=== PATIENT | male | born 2000 | race Caucasian/White ===

== ENCOUNTER 2025-03-02 14:51 | Outpatient (AMB) | payer OTHER, SELFPAY ==
--- NOTE | 2025-03-02 14:56 | MHC.PC.OV ---
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 Family history of hypertension. Allergies Seasonal Allergies Allergy (Verified 03/02/25 15:02) Watery Eye Medication List - Last Reconciled 03/02/25 by Ignacio Herrera MD No Known Home Meds Tobacco use date assessed: 03/02/25 Dental Screening Dental Screen Date: 03/02/25 Did you have a dental visit in the last 12 months?: Yes Did you have a dental problem in the last 6 months where you did not have access to dental care?: No Was dental information given to patient?: Patient has dentist HPI CLOCK AND WATCH HANDS DIPPER -High BP HPI Details New Patient? ?? Prior PCP:? Yisel Last office visit/CPE:? 3-4 yrs ago Acute issue(s):? ?? PMHx:? L shoulder pain Hx of torn Labrum. Has seen [facility]. No surgery so far. SurgHx:? L Clavicle w/ Hardware 2018. FHx:? Dad: HTN, Asthma. Mom: HTN pGF: Cancer. SocHx:? Nonsmoker, EtOH Social Weekends 2-3 drTeofilo No drugs PFS Medical History (Updated 03/02/25 @ 15:36 by Josh Long) Strabismus Clavicle fracture Surgical History (Updated 03/02/25 @ 15:12 by Yanet Gudino CMA) [place] teeth removed Family History (Updated 03/02/25 @ 15:05 by Yanet Gudino CMA) Father Asthma Hypertension Mother Hypertension Paternal Grandfather Pancreatic cancer Social History (Updated 03/02/25 @ 15:04 by Yanet Gudino CMA) Housing: House Alcohol intake: current Patient Tobacco Use Status: Never used Tobacco e-Cigarette/Vaping Use: Never Used Second Hand Smoke Exposure: No Use of substances other than those prescribed or required for medical reasons: No service: No Current occupational status: employed Current occupation: [employer] Current occupational exposures/hazards: No Cognitive needs: No Hearing needs: No Vision needs: No Questionnaire PHQ-9 Over the last 2 weeks, how often have you been bothered by any of the following problems? 1. Little interest or pleasure in doing things: not at all 2. Feeling down, depressed, or hopeless: not at all 3. Trouble falling or staying asleep, or sleeping too much: not at all 4. Feeling tired or having little energy: not at all 5. Poor appetite or overeating: not at all 6. Feeling bad about yourself - or that you are a failure or have let yourself or your family down: not at all 7. Trouble concentrating on things, such as reading the newspaper or watching television: not at all 8. Moving or speaking so slowly that other people could have noticed. Or the opposite - being so fidgety or restless that you have been moving around a lot more than usual: not at all 9. Thoughts that you would be better off or of hurting yourself in some way: not at all Total score: 0 Depression Screening Interpretation: Negative Depression Screening Done: Yes 89579 - PHQ-9 Billing: Yes Source: Developed by Drs. Mansoor Garza, Sanjana Horan, Curry Andrew and colleagues, with an educational jacky from [employer]. Thrive Questionnaire Date Thrive assessed: 03/02/25 I am a: Patient What is your living situation today?: I have a steady place to live Within the past 12 months, did the food you bought not last and you didn't have the money to get more?: Never true Within the past 12 months, did you worry whether your food would run out before you got money to buy more?: Never true Do you have trouble paying for medicines?: No Do you have trouble getting transportation to medical appointments?: No Do you have trouble paying your heating and electricity bill?: No Do you have trouble taking care of your child, family member or friend?: No Do you have trouble with day-to-day activities such as bathing, preparing meals, shopping, managing finances, etc.?: No Are you currently unemployed and looking for a job?: No Are you interested in more education?: No Please select the resources that you would like help with: None Currently or been in a relationship where the following occur: No concerns reported THRIVE Score: 0 AUDIT C Alcohol Use Questionnaire (AUDIT-C) 1. How often do you have a drink containing alcohol?: 2-4 times a month 2. How many drinks containing alcohol do you have on a typical day when you are drinking?: 3 or 4 3. How often do you have six or more drinks on one occasion?: Less than monthly Total Score: 4 ANGI-7 AMB Questionnaire ANGI-7 Date ANGI - 7 assessed: 03/02/25 Feeling nervous, anxious, or on edge: 0 = Not at all Not being able to stop or control worryin = Not at all Worrying too much about different things: 0 = Not at all Trouble relaxin = Not at all Being so restless that it is hard to sit still: 0 = Not at all Becoming easily annoyed or irritable: 0 = Not at all Feeling afraid as if something awful might happen: 0 = Not at all Total ANGI-7 score (0-4 normal; 5-9 mild; 10-14 moderate; 15-21 severe): 0 Source: Developed by Drs. Mansoor Garza, Sanjana Horan, Curry Andrew and colleagues, with an educational jacky from [employer]. ANGI-7 Assessment Billing ANGI-7 Assessment Tool: ANGI-7 Assessment 46494 Review of Systems Const Denies chills, Denies fatigue, Denies fever(s), Denies headache(s) and Denies weakness Eyes Denies change in vision ENT Denies dizziness, Denies headache(s), Denies hearing loss, Denies nasal congestion, Denies sinus pain, Denies sinus pressure and Denies sore throat Card Denies chest pain, Denies lightheadedness, Denies dyspnea and Denies other (palpitations) Resp Denies cough, Denies dyspnea and Denies wheezing GI Denies abdominal pain, Denies melena, Denies hematochezia, Denies change in bowel habits, Denies dyspepsia and Denies nausea Denies hematuria and Denies dysuria Musc Denies abnormal gait, Denies myalgias, Denies arthralgias, Denies numbness and Denies tingling Skin/Breast Denies rash, Denies unusual bruising and Denies wounds Neuro Denies abnormal gait, Denies dizziness, Denies headache(s), Denies memory loss, Denies numbness, Denies Sensory deficit (Neuro), Denies tingling and Denies weakness Psych Denies anxiety, Denies depression and Denies memory loss Endo Denies cold intolerance, Denies fatigue, Denies heat intolerance, Denies polydipsia and Denies polyuria Osmar/Lymph Denies easy bleeding and Denies easy bruising Aller/Immun Denies wheezing Physical exam (Primary Care) Vital Signs: Last Vital Signs Temp 97.9 F 03/02/25 15:05 Pulse 76 03/02/25 15:05 Resp 14 03/02/25 15:05 BP 116/68 03/02/25 15:05 Pulse Ox 98 03/02/25 15:05 Oxygen Delivery Method Room Air 03/02/25 15:05 BMI result Body Mass Index 23.6 Tobacco/Smoking Status: Tobacco use Status Tobacco use date assessed 03/02/25 03/02/25 15:12 Patient Tobacco Use Status Never used Tobacco 03/02/25 15:12 e-Cigarette/Vaping Use Never Used 03/02/25 15:12 PHQ-9: PHQ-9 Score PHQ-9: Total score 0 03/02/25 14:58 Depression Screening Interpretation: Negative Thrive Assessment: Date of Thrive Assessment Date Thrive assessed 03/02/25 03/02/25 14:58 Currently or been in a relationship where the following occur: No concerns reported Const General: no acute distress, well developed, alert and awake Nutritional Appearance: well nourished Orientation/consciousness: patient oriented x3 HENMT Head: Yes normocephalic and Yes atraumatic Ears: hearing grossly normal bilaterally and TM's normal bilaterally General nose exam: Normal external nose present and Normal nares present Mouth: Normal oral and palatal mucosa present and moist mucous membranes Teeth and gingiva: dentition normal Throat: Yes posterior oropharynx normal Eyes General: appearance normal, both eyes and all related structures Pupils: Equal, round and reactive pupils present and Pupil accommodation reflex normal EOM: EOMs intact bilaterally Neck Neck: Yes normal visual inspection, Yes no lymphadenopathy and Yes trachea midline Thyroid: Thyroid normal Carotids: no bruits Lymphatic: no lymphadenopathy noted Chest Chest palpation & inspection: normal inspection of the chest Resp Effort & Inspection: normal respiratory effort Auscultation: clear to auscultation bilaterally Cardio Rate: regular rate Rhythm: regular rhythm Heart sounds: S1 normal heart sound present, S2 normal heart sound present, no gallops, no murmurs and no rubs Bruits: no abdominal aortic bruits and no carotid bruits GI Palpation (GI): No Abdominal aortic bruit present, Soft to palpation, nontender, No hepatosplenomegaly present and No Rebound tenderness present Auscultation: normal bowel sounds General: Yes no CVA tenderness Back/Spine/Pelvis Back: no CVA tenderness Cervical Spine: cervical ROM normal and No Cervical spine tenderness Thoracic/Lumbar Spine: thoraco-lumbar ROM normal, No pain with thoraco-lumbar ROM, No thoracic spinal tenderness and No lumbar spinal tenderness Skin Lesions: no lesions Rashes: no rashes Trauma: no lacerations or abrasions Wounds: no wounds Nails: normal Neuro General: patient oriented x3 Cranial nerves: Yes Equal, round and reactive pupils present Cognition (Neuro): normal cognition Gait exam (Neuro): Normal gait present Motor exam (neuro): 5/5 motor strength present throughout Sensory Exam: No Sensory deficit (Neuro) Deep tendon reflexes (DTR's): Right patellar reflex intensity grade: 2+ and Left patellar reflex intensity grade: 2+ Extrem General: Yes normal to inspection and No edema Psych Appearance: grossly normal Affect: normal affect Attitude: cooperative Thought process: Normal thought process present Coding Level of Care Code New Pt Level 3 (12520) New Pt Prev Care 18-39yr(06167 Diagnoses Adult general medical exam Z00.00 Left shoulder pain M25.512 Additional Codes ANGI-7 Assessment Billing - ANGI-7 Assessment Tool: ANGI-7 Assessment 52214 ([id number]) PHQ-9 - 52128 - PHQ-9 Billing: Yes ([id number]) Assessment & Plan Assessment & Plan (1) Adult general medical exam: Code(s): Z00.00 - Encounter for general adult medical examination without abnormal findings Category: Medical Plan: 24-year-old male presents as new patient for complete physical exam Exam all within limits Encouraged a healthy diet with active lifestyle and plenty of exercise (2) Left shoulder pain: Code(s): M25.512 - Pain in left shoulder Category: Medical Plan: History of left labrum tear Currently no pain and he has done physical therapy in the past. Stable. He can let me know if he has any new issues. Orders: Orders Lipid Panel Today Z00.00 - Encounter for general adult medical examination without abnormal findings CT NG by PCR Urine Today Z11.3 - Encounter for screening for infections with a predominantly sexual mode of transmission Hepatitis B,C Profile Today Z11.3 - Encounter for screening for infections with a predominantly sexual mode of transmission Syphilis Screen Today Z11.3 - Encounter for screening for infections with a predominantly sexual mode of transmission Comprehensive [place]. Panel Fast Today Z00.00 - Encounter for general adult medical examination without abnormal findings Microalbumin, Random (w Creat) Today I10 - Essential (primary) hypertension TSH reflex Free T4 Today Z00.00 - Encounter for general adult medical examination without abnormal findings UA CC w/rflx Micro + Cult Today Z00.00 - Encounter for general adult medical examination without abnormal findings HIV Ab/Ag Today Z11.3 - Encounter for screening for infections with a predominantly sexual mode of transmission
[2025-03-02 15:05] VITALS: BP 116/68; PULSE 76; RESP 14; TEMP 36.6; O2SAT 98; BMI 23.6
--- OUTSIDE RECORDS SUMMARY | 2025-03-02 16:11 | XMS_ITS | Clinical Summary ---
Author Organization [facility] Address [address] [place] [address] Care Team Providers Care Stock Chaser Name Role Phone Unavailable Primary Care Provider Unavailabl e Source Comments Please note that some or all of the patient's information could have additional privacy protections. State laws allow health care providers to render certain types of treatment to minors without parental consent. Please do not assume that this information can be shared solely by obtaining just the consent of the patient's parent/guardian. Please determine if all or part of the patient's care was rendered without parent/guardian involvement. And, if so, obtain the minor's consent prior to disclosure.[facility] Family History Medical History Relation Name Comments Myopia Father Relation Name Status Comments Father Social History Tobacco Use Types Packs/Day Years Used Date Smoking Tobacco: Never Assessed Sex and Gender Information Value Date Recorded Sex Assigned at Not on file Legal Sex Male 2:22 AM EST Gender Identity Not on file Sexual Orientation Not on file Plan of Treatment Health Maintenance Due Date Last Done Comments DTaP/TDAP/TD VACCINES (1 - Tdap) 2008 ADOLESCENT HIV SCREENING 2014 COVID-19 Vaccine (2023-2 5 season) 2025 INFLUENZA (#1) 2025 NIRSEVIMAB VACCINES UNDER 8 MONTHS Aged Out No longer eligible based on patient's age to complete this topic [place] [facility] Address: [facility] [id number] [facility] [place] [phone]
--- OUTSIDE RECORDS SUMMARY | 2025-03-02 16:11 | XMS_ITS | Clinical Summary ---
Author Organization [facility] Address [address] [place] [address] Phone Care Team Providers Care Epitaxial Reactor Operator Name Role Phone [facility] Primary Care Provider [facility], [facility] Unavailable [facility], [facility] Unavailable Social History Tobacco Use Types Packs/Day Years Used Date Smoking Tobacco: Never Assessed Sex and Gender Information Value Date Recorded Sex Assigned at Not on file Legal Sex Male 1:20 AM EDT Gender Identity Not on file Sexual Orientation Not on file Plan of Treatment Not on file Care Teams Epitaxial Reactor Operator Relationship Specialty Start Date End Date [facility] [address] [place] [address] PCP - General 08/22/17 [facility] [address] [place] [address] PCP - Clinical PCP 08/22/17 [facility] [address] [place] [address] PCP - Insurance PCP 08/22/17
--- OUTSIDE RECORDS SUMMARY | 2025-03-02 16:11 | XMS_ITS ---
Author Name [facility] Organization Unknown Care Team Organization Name Specialty Phone Email Start Date End Da te [facility] EMANUEL DUMONTIS Primary Care 04/10/20222023
== END 2025-03-02 15:43 | disposition home or self-care (01) ==
LOC: HO.HMCFM 14:52
PROVIDERS: PCP Family Medicine; Visit Provider Family Medicine
DX: Z00.00 Encounter for general adult medical examination without abnormal findings (principal); M25.512 Pain in left shoulder

== ENCOUNTER → 2025-03-02 14:51 | Outpatient (BNVA) | payer OTHER, SELFPAY | PROVIDERS: PCP Family Medicine; Visit Provider Family Medicine | DX: Z00.00 Encounter for general adult medical examination without abnormal findings (principal); M25.512 Pain in left shoulder | CPT/HCPCS: 96127 ==

== ENCOUNTER 2025-05-29 09:23 | Outpatient (REF) | payer OTHER, SELFPAY ==
--- OUTSIDE RECORDS SUMMARY | 2025-05-29 09:28 | XMS_ITS | Clinical Summary ---
Author Organization [facility] Address [address] [place], [place] [id number] Care Team Providers Care [employer] Principal Name Role Phone None, Pcp MD Primary Care Provider Unavailabl e Allergies No known active allergies Medications oxyCODONE-aceta minophen (PERCOCET) 5-325 mg per tablet Take 1-2 tablets by mouth every 4 hours as needed for pain. 15 tablet 05/30/2017 Active Social History Tobacco Use Types Packs/Day Years Used Date Smoking Tobacco: Never Assessed Sex and Gender Information Value Date Recorded Sex Assigned at Not on file Legal Sex Male 7:45 PM EST Gender Identity Not on file Sexual Orientation Not on file Last Filed Vital Signs Vital Sign Reading Time Taken Comments Blood Pressure 129/83 05/30/2017 7:50 PM EST Pulse 88 05/30/2017 7:50 PM EST Temperature 36.8 C (98.3 F) 05/30/2017 7:50 PM EST Respiratory Rate 16 05/30/2017 7:50 PM EST Oxygen Saturation 98% 05/30/2017 7:50 PM EST Inhaled Oxygen Concentration - - Weight - - Height 175.3 cm (5' 9 ) 05/30/2017 7:50 PM EST Body Mass Index - - Plan of Treatment Not on file Insurance [employer] Care Teams [employer] Principal Relationship Specialty Start Date End Date None, Pcp, PCP - General 05/30/17
--- OUTSIDE RECORDS SUMMARY | 2025-05-29 09:28 | XMS_ITS | Clinical Summary ---
Author Organization [facility] Address [address] [place] [address] Phone Care Team Providers Care Balance Screwhead Polisher Name Role Phone [facility] Primary Care Provider [facility], [facility] Unavailable [facility], [facility] Unavailable Social History Tobacco Use Types Packs/Day Years Used Date Smoking Tobacco: Never Assessed Sex and Gender Information Value Date Recorded Sex Assigned at Not on file Legal Sex Male 1:20 AM EDT Gender Identity Not on file Sexual Orientation Not on file Plan of Treatment Not on file Care Teams Balance Screwhead Polisher Relationship Specialty Start Date End Date [facility] [address] [place] [address] PCP - General 08/22/17 [facility] [address] [place] [address] PCP - Clinical PCP 08/22/17 [facility] [address] [place] [address] PCP - Insurance PCP 08/22/17
--- OUTSIDE RECORDS SUMMARY | 2025-05-29 09:28 | XMS_ITS | Clinical Summary ---
Author Organization [facility] '[facility] Address [address] [place] [address] Care Team Providers Care Supervisor Printing Shop Name Role Phone Unavailable Primary Care Provider [...] so, obtain the minor's consent prior to disclosure.[facility] Family History Medical History Relation Name [...]
[2025-05-29 11:17] LABS: Appearance Urine Clear; Glucose Urine UA Negative (Negative); PH 6.5 (5.0-9.0); Specific Gravity - Urine 1.010 (1.005-1.025)
[2025-05-29 11:35] LABS: Alanine Aminotransferase 17 U/L (0-40); Albumin Level 5.1 g/dL (3.5-5.0); Alkaline Phosphatase 59 U/L (39-117); Anion Gap 12 (12-20); Aspartate Amino Transferase 21 U/L (5-37); Blood Urea Nitrogen 12 mg/dL (9-16); Calcium 9.7 mg/dL (8.4-10.2); Carbon Dioxide 27 mmol/L (22-29); Chloride 105 mmol/L (96-108); Cholesterol 199 mg/dL (<200); Estimated Glomerular Filt Rate > 60; HDL Cholesterol 54 mg/dL (>40); Potassium 3.9 mmol/L (3.3-5.1); Sodium 140 mmol/L (135-145); Total Protein 7.3 g/dL (6.5-8.0); Triglycerides 102 mg/dL (<150)
[2025-05-29 11:45] LABS: Syphilis Screen Nonreactive (Nonreactive)
[2025-05-29 11:47] LABS: HBS Num1 0.00 mIU/mL (0-7.99); HBc Num1 0.28 S/CO (0.00-0.79); HBsAGNum1 0.37 S/CO (0.00-0.99); HIV Num 1 0.09 S/CO (0.00-0.99); Hepatitis B Surface Antigen Negative (Negative); ~HepC Num1 0.05 S/CO (0.00-0.79); ~Hepatitis B Surface Antibody NONREACTIVE (Nonreactive); ~Hepatitis C Antibody Nonreactive (Nonreactive)
[2025-05-29 12:53] LABS: CT PCR Urine NOT DETECTED (Not Detect.); NG PCR Urine NOT DETECTED (Not Detect.)
== END 2025-05-29 09:24 | disposition home or self-care (01) ==
LOC: HO.HMGCLDS 09:23
PROVIDERS: PCP Family Medicine; Visit Provider Family Medicine
DX: Z00.00 Encounter for general adult medical examination without abnormal findings (principal); Z20.2 Contact with and (suspected) exposure to infections with a predominantly sexual mode of transmission; Z11.59 Encounter for screening for other viral diseases; Z11.4 Encounter for screening for human immunodeficiency virus [HIV]; I10 Essential (primary) hypertension
CPT/HCPCS: 80053; 80061; 81003; 82570; 84443; 86704; 86706; 86780; 86803; 87340; 87389; 87491; 87591

== ENCOUNTER → 2025-06-01 16:04 | Outpatient (AMB) | payer OTHER, SELFPAY ==
--- NOTE | 2025-06-01 16:01 | A.OFFPC_ITS ---
Intake Visit Reasons: f/u labs via telemedicine Intake Note: Marcial presents for a telehealth follow up to his lab results. Flap Maker Required: No Allergies Seasonal Allergies Allergy (Verified 06/01/25 16:02) Watery Eye Tobacco use date assessed: 06/01/25 Dental Screening Dental Screen Date: 06/01/25 Did you have a dental visit in the last 12 months?: Yes Did you have a dental problem in the last 6 months where you did not have access to dental care?: No Was dental information given to patient?: Patient has dentist HPI f/u labs via telemedicine HPI Details 25 y/o male presents to f/u labs. Recent labs show elevated lipids. [facility] Medical History (Updated 06/01/25 @ 16:31 by Josh Long) Strabismus Clavicle fracture Surgical History (Updated 03/02/25 @ 15:12 by Yanet Gudino CMA) [place] teeth removed Family History Father Asthma Hypertension Mother Hypertension Paternal Grandfather Pancreatic cancer Social History (Updated 06/01/25 @ 16:02 by Yanet Gudino CMA) Housing: House Alcohol intake: current Patient Tobacco Use Status: Never used Tobacco e-Cigarette/Vaping Use: Never Used Second Hand Smoke Exposure: No service: No Current occupational status: employed Current occupation: [employer] Current occupational exposures/hazards: No Cognitive needs: No Hearing needs: No Vision needs: No Questionnaire Thrive Questionnaire Date Thrive assessed: 03/02/25 ANGI-7 AMB Questionnaire ANGI-7 Date ANGI - 7 assessed: 03/02/25 Source: Developed by Drs. Mansoor Garza, Sanjana Horan, Curry Andrew and colleagues, with an educational jacky from [employer]. Review of Systems Const Denies chills, Denies fatigue, Denies fever(s), Denies headache(s) and Denies weakness ENT Denies dizziness and Denies headache(s) Card Denies dyspnea Resp Denies cough, Denies dyspnea, Denies wheezing and Denies other (shortness of breath) Musc Denies numbness and Denies tingling Neuro Denies dizziness, Denies headache(s), Denies numbness, Denies tingling and Denies weakness Psych Denies anxiety and Denies depression Endo Denies fatigue Aller/Immun Denies wheezing Physical exam (Primary Care) Tobacco/Smoking Status: Tobacco use Status Tobacco use date assessed 06/01/25 06/01/25 16:03 Patient Tobacco Use Status Never used Tobacco 06/01/25 16:03 e-Cigarette/Vaping Use Never Used 06/01/25 16:03 Thrive Assessment: Date of Thrive Assessment Date Thrive assessed 03/02/25 06/01/25 16:03 Telehealth Telehealth Telehealth Platform: Telephone Location of provider rendering services: practice address Location of patient: address on file Patient Identification confirmed using: Name, : Yes Telehealth method: voice only Patient verbally consented to treatment: Yes Patient verbally consented to billing insurance company: Yes Patient informed of any privacy concerns related to visit: Yes Minutes spent on Phone/Video with Pt.: 6 Coding Level of Care Code Tele Est Pt Level 2 (10637) Diagnoses Elevated LDL cholesterol level E78.00 Assessment & Plan Assessment & Plan (1) Elevated LDL cholesterol level: Code(s): E78.00 - Pure hypercholesterolemia, unspecified Category: Medical Plan: LDL cholesterol is too high. Goal is less than 100 Encouraged a diet lower in saturated fats and cholesterol Encouraged exercise and also weight loss Will have him recheck lipids in about 3 months. We discussed that if he is unable to make significant improvements in his cholesterol, we should discuss medication. Orders: Orders Lipid Panel Today E78.00 - Pure hypercholesterolemia, unspecified, Z00.00 - Encounter for general adult medical examination without abnormal findings Comprehensive [place]. Panel Fast Today E78.00 - Pure hypercholesterolemia, unspecified, Z00.00 - Encounter for general adult medical examination without abnormal findings
--- OUTSIDE RECORDS SUMMARY | 2025-06-01 19:04 | XMS_ITS | Clinical Summary ---
Author Organization [facility] Address [address] [place] [address] Phone Care Team Providers Care Meat Sales And Storage Manager Name Role Phone [facility] Primary Care Provider [facility], [facility] Unavailable [facility], [facility] Unavailable Social History Tobacco Use Types Packs/Day Years Used Date Smoking Tobacco: Never Assessed Sex and Gender Information Value Date Recorded Sex Assigned at Not on file Legal Sex Male 1:20 AM EDT Gender Identity Not on file Sexual Orientation Not on file Plan of Treatment Not on file Care Teams Meat Sales And Storage Manager Relationship Specialty Start Date End Date [facility] [address] [place] [address] PCP - General 08/22/17 [facility] [address] [place] [address] PCP - Clinical PCP 08/22/17 [facility] [address] [place] [address] PCP - Insurance PCP 08/22/17
--- OUTSIDE RECORDS SUMMARY | 2025-06-01 19:04 | XMS_ITS | Clinical Summary ---
Author Organization [facility] '[facility] Address [address] [place] [address] Care Team Providers Care Corporate Traffic Manager Name Role Phone Unavailable Primary Care Provider [...]
--- OUTSIDE RECORDS SUMMARY | 2025-06-01 19:04 | XMS_ITS | Clinical Summary ---
Author Organization [facility] Address [address] [place], [place] [id number] Care Team Providers Care Pourer Metal Name Role Phone None, Pcp MD Primary [...] Not on file Insurance [employer] Care Teams Pourer Metal Relationship Specialty Start Date End Date None, Pcp, PCP - General 05/30/17
== END ==
LOC: HO.HMCFM 16:04
PROVIDERS: PCP Family Medicine; Visit Provider Family Medicine
DX: E78.00 Pure hypercholesterolemia, unspecified (principal)